=== PATIENT | female | born 1975 | race Hispanic/Latino ===

== ENCOUNTER 2018-01-29 08:23 | Observation (INO) | payer SELFPAY ==
[2018-01-29 09:07] LABS: #Basophils 0.1 thou/uL (0.0-0.2); #Eosinphils 0.1 thou/uL (0.0-0.7); #Lymphocytes 3.6 thou/uL (1.20-3.40); #Monocytes 0.4 thou/uL (0.11-0.59); #Neutrophils 8.4 thou/uL (1.40-6.50); %Basophils 0.5 % (0.0-1.0); %Eosinophils 1.1 % (0.0-10.0); %Lymphocytes 28.5 % (21.0-51.0); %Monocytes 3.5 % (0.0-10.0); %Neutrophils 66.5 % (42.0-75.0); Hemoglobin 15.7 g/dL (12.0-16.0); Mean Corpuscular HGB CONC 34.7 g/dL (32.0-36.0); Mean Corpuscular Hemoglobin 29.6 pg (27.0-31.0); Mean Corpuscular Volume 85.3 fl (81.0-99.0); Mean Platelet Volume 8.8 fL (7.4-10.4); Platelet Count 240 thou/uL (130-400); RBC Distribution Width 12.3 % (11.5-14.5); Red Blood Cell (RBC) Count 5.29 mill/uL (4.20-5.40); White Blood Cell (WBC) Count 12.6 thou/uL (4.8-10.8)
[2018-01-29 09:12] LABS: ALT (SGPT) 14 U/L (8-55); AST (SGOT) 15 U/L (5-34); Albumin 4.5 g/dL (3.5-5.0); Alkaline Phosphatase 119 U/L (40-150); Anion Gap 14 mmol/L (10-20); BUN (Urea Nitrogen) 17 mg/dL (7.0-18.7); Bilirubin, Total 0.6 mg/dL (0.2-1.2); CK (CPK) 37 U/L (29-168); Calc. Creatinine Clearance 0 mL/min (70-130); Calcium 9.8 mg/dL (7.8-10.44); Carbon Dioxide 28 mmol/L (22-29); Chloride 98 mmol/L (98-107); Estimated GFR-MDRD 72; Globulin 3.8 g/dL (2.4-3.5); Glucose 255 mg/dL (70-105); Potassium 3.1 mmol/L (3.5-5.1); Protein, Total 8.3 g/dL (6.0-8.3); Sodium 137 mmol/L (136-145)
[2018-01-29 09:16] LABS: CKMB 0.3 ng/mL (0-6.6); Troponin I Less than 0.010 ng/mL (< 0.028)
[2018-01-29 10:07] LABS: Bilirubin Negative (Negative); Blood, Urine Trace (Negative); Clarity TURBID (Clear); Glucose, Urine (Dipstick) 250 mg/dL (Negative); Leukocyte Moderate (Negative); Nitrite Negative (Negative); Protein, Urine (Dipstick) Negative (Neg-Trace); Urobilinogen 0.2 mg/dL (0.2-1.0); pH, Urine 5.5 (5.0-9.0)
--- NOTE | 2018-01-29 10:11 | CT ---
CT BRAIN NONCONTRAST: HISTORY: 42-year-old female with headache and hypertension. FINDINGS: The ventricles are normal in size and configuration. There is no midline shift or any other mass eff ect. There is no evidence of acute intracranial hemorrhage, large cortical infarct, or extraaxial fl uid collection. The sandra matter /white matter differentiation is maintained. The calvarium is intac t. The tympanomastoid cavities, and the upper portions of the paranasal sinuses included in these im ages, are grossly clear. IMPRESSION: Normal. jn [] POS: [facility]
[2018-01-29] MEDS ORDERED: Aspirin 325 MG TAB ONE (10:24)
[2018-01-29] MEDS ORDERED: Potassium Chloride 20 MEQ TAB ONE (10:24)
[2018-01-29] MEDS ORDERED: Insulin Regular 300 UNITS/3 ML VIAL ONE (10:25)
[2018-01-29 10:26] LABS: Bacteria/HPF None Seen HPF (None Seen); Hyaline Casts/LPF 0-3 HYALINE CAST LPF (0-3 Hyaline)
[2018-01-29] MEDS ORDERED: Ketorolac Tromethamine 30 MG/ML VIAL ONE (10:26)
--- NOTE | 2018-01-29 10:32 | RAD ---
PORTABLE CHEST: Date: 01/29/18 HISTORY: Chest pain. FINDINGS: Heart size is within normal limits for portable technique. No signs of failure or focal infiltrates. IMPRESSION: Borderline heart size. POS: [facility]
[2018-01-29] MEDS ORDERED: cefTRIAXone\\ROCEPHIN 1 GM VIAL ONE (12:12)
[2018-01-29 12:22] LABS: Troponin I 0.016 ng/mL (< 0.028)
[2018-01-29 12:47] VITALS: BMI 35.2
[2018-01-29] MEDS ORDERED: Ondansetron ODT 4 MG TAB SL PRN (13:00)
[2018-01-29] MEDS ORDERED: Ondansetron HCl/PF 4 MG/2 ML Vial IVP PRN (13:00)
[2018-01-29] MEDS ORDERED: Acetaminophen 325 MG TAB PO PRN (13:00)
[2018-01-29 14:20] LABS: Troponin I Less than 0.010 ng/mL (< 0.028)
[2018-01-29 14:21] LABS: Cardiac Risk 7.7 (Less than 4.5)
[2018-01-29] MEDS ORDERED: Dextrose 50% Abboject 50 ML SYRINGE SLOW IVP PRN (16:49)
[2018-01-29] MEDS ORDERED: Dextrose 5% in Water 1,000 ML IV PRN (16:49)
[2018-01-29] MEDS: HumaLOG 300 UNITS/3 ML VIAL SC PRN ×2 (18:28→20:12)
--- NOTE | 2018-01-29 19:52 | HP ---
CHIEF COMPLAINT: Chest pain. HISTORY OF PRESENT ILLNESS: Patient is a very pleasant 42-year-old female with a history of hyperten srini and diabetes and smoking who presents to the hospital with complaints of chest pain. Patient st ates that she woke up this morning at 5:00 a.m. and started having a headache and then started having sharp chest pain to her left substernal area around 7:00 a.m. Patient stated that she did have some nausea; however, no emesis and had some dizziness also. Patient states that she has been under a lo t of stress recently since she found out that her has been cheating on her. Patient states t hat she has not eaten anything for the past 2 days. Patient states that her chest pain is sharp in n ature. Denies any radiation, currently; however, states that she did have some radiation down her le ft arm earlier which has resolved. Denies any diaphoresis; however, did have some dizziness and no s hortness of breath was noted. Patient got concerned and came into the ER for further evaluations. PAST MEDICAL HISTORY: History of hypertension, diabetes, hypercholesterol. PAST SURGICAL HISTORY: Cholecystectomy, tonsillectomy, 3 C-sections. SOCIAL HISTORY: She smokes 3 packs a week for the past couple of weeks given her stress level; [facility], normally she smokes a pack a week. Denies any alcohol or drug use. FAMILY HISTORY: Mother has a history of breast cancer, hypertension. Father's history she does not know. MEDICATIONS: She takes metformin, aspirin, amlodipine and atorvastatin daily. ALLERGIES: She has got no known drug allergies. REVIEW OF SYSTEMS: The following complete review of systems was negative, unless otherwise mentioned in the HPI or below: Constitutional: Weight loss or gain, ability to conduct usual activities. Sk in: Rash, itching. Eyes: Double vision, pain. ENT/Mouth: Nose bleeding, neck stiffness, pain, te nderness. Cardiovascular: Palpitations, dyspnea on exertion, orthopnea. Respiratory: Shortness of breath, wheezing, cough, hemoptysis, fever or night sweats. Gastrointestinal: Poor appetite, abdom inal pain, heartburn, nausea, vomiting, constipation, or diarrhea. Genitourinary: Urgency, frequenc y, dysuria, nocturia. Musculoskeletal: Pain, swelling. Neurologic/Psychiatric: Anxiety, depressio n. Allergy/Immunologic: Skin rash, bleeding tendency. PHYSICAL EXAMINATION. VITAL SIGNS: Temperature of 98.0, pulse 62, respiratory rate 20, O2 sat 97% room air, blood pressure 152/73. GENERAL: She is awake, alert, oriented x3, does not appear in any distress. HEENT: Normocephalic, atraumatic. No lymphadenopathy noted. CARDIOVASCULAR: S1, S2 present. No murmurs, rubs or gallops. ABDOMEN: Soft, nontender. Bowel sounds are present x2. No hepatomegaly, splenomegaly noted. LUNGS: Clear to auscultation. No rhonchi, wheezes noted. EXTREMITIES: Lower extremity, no edema noted. Pedal pulses present x2. SKIN: No bruises or lesions noted. NEUROLOGIC: She is awake, alert, and oriented x3. No focal abnormalities noted. LABORATORY DATA: As following: Sodium of 137, potassium of 3.1, BUN of 17, creatinine 0.86. Sugar of 255. Troponins x3 were negative. WBC of 12.6, hemoglobin of 14.7, hematocrit 45.1. EKG upon my review appeared to be normal. CT brain, no acute abnormalities noted and chest x-ray again no abnorm alities noted. ASSESSMENT AND PLAN: Patient is a very pleasant 42-year-old female who presents to the hospital with complaints of chest pain. 1. Atypical chest pain. Troponins x3 are negative. EKG is negative; however, patient does have ris k factors which includes hypertension, diabetes, smoking, and obesity. We will order a stress test w ith patient. We will check a lipid level. D-dimer was negative. Patient encouraged about smoking c essation and also diet, exercise and weight loss. 2. Diabetes. We will hold the metformin. We will start the patient on sliding scale insulin and al so Accu-Cheks a.c. and at bedtime. 3. Hypertension. We will continue the patient's home medications. Patient may require adjustment o f her blood pressure medications. 4. Hyperlipidemia. Patient currently is on 10 mg of atorvastatin. Her fasting lipid panel indicate s uncontrolled cholesterol and triglycerides. We will increase her atorvastatin to 40 mg. 5. Deep venous thrombosis prophylaxis. We will put patient on subQ heparin.
[2018-01-29] MEDS: Atorvastatin Calcium 40 MG TAB PO SCH (20:11)
[2018-01-29] MEDS ORDERED: Enoxaparin Sodium 40 MG/0.4 ML SYRINGE SC SCH (21:00)
[2018-01-30] MEDS: HumaLOG 300 UNITS/3 ML VIAL SC PRN ×4 (06:41→20:39)
[2018-01-30] MEDS ORDERED: Atorvastatin Calcium 10 MG TAB PO SCH (09:00)
[2018-01-30] MEDS: Aspirin 325 MG TAB PO SCH (09:31)
[2018-01-30] MEDS: Amlodipine 5 MG TAB PO SCH (09:31)
--- NOTE | 2018-01-30 12:12 | NM ---
MYOCARDIAL PERFUSION SCAN WITH SPECT IMAGING: HISTORY: Chest pain. TECHNIQUE/FINDINGS: Examination is performed using 30 mCi 99m-technetium sestamibi on the stress and 32 on the resting im ages. This shows An area of thinning of the anterolateral wall of the left ventricle which does appea r to improve slightly on resting images. WALL MOTION: There is symmetric contractility to the ventricle. LEFT VENTRICULAR EJECTION FRACTION: The calculated left ventricular ejection fraction is 61%. IMPRESSION: Anterolateral wall thinning of the left ventricle which does improve on the resting images suggesting some ischemic change. POS: [facility]
[2018-01-30] MEDS ORDERED: Enoxaparin Sodium 80 MG/0.8 ML SYRINGE SC SCH (14:30)
--- NOTE | 2018-01-30 14:41 | PDOC.PN ---
- Subjective Encounter Start Date: 01/30/18 Encounter Start Time: 14:39 Pt seen for followup re: chest pain. Reports on and off L sided chest pain. Denies fevers or chills. No nausea or vomiting. - Objective MAR Reviewed: Yes Vital Signs & Weight: Vital Signs (12 hours) Temp Pulse Resp BP Pulse Ox 01/30/18 11:20 98.8 F 56 L 16 167/80 H 97 01/30/18 07:18 98.4 F 60 16 144/71 H 94 L 01/30/18 04:00 98.2 F 78 16 144/87 H 95 Weight Weight 192 lb 3.2 oz I&O: 01/29/18 01/30/18 01/31/18 06:59 06:59 06:59 Intake Total 650 Balance 650 Result Diagrams: 01/29/18 08:46 01/29/18 08:46 Additional Labs: Accuchecks 01/30/18 01/30/18 01/29/18 11:25 06:05 20:07 POC Glucose 317 H 252 H 289 H 01/29/18 16:33 POC Glucose 299 H EKG Reviewed by me: Yes (Tele: NSR) Phys Exam - Physical Examination Constitutional: NAD HEENT: moist MMs, sclera anicteric, oral pharynx no lesions, 2+ tonsils Neck: no nodes, no JVD, supple, full ROM Respiratory: no wheezing, no rales, no rhonchi, clear to auscultation bilateral Cardiovascular: RRR, no rub S1, S2 Gastrointestinal: soft, non-tender, no distention, positive bowel sounds Neurological: moves all 4 limbs Psychiatric: normal affect, A&O x 3 Dx/Plan (1) Chest pain Code(s): R07.9 - CHEST PAIN, UNSPECIFIED Status: Acute Comment: Continues to have on and off chest pain, continue aspirin and nitro PRN, start Lovenox for probable unstable angina. (2) Abnormal stress test Status: Acute Comment: consult cardiology. (3) Tobacco abuse Code(s): Z72.0 - TOBACCO USE Status: Chronic Comment: Counseled re: tobacco cessation, start nicotine replacement therapy. (4) HTN (hypertension) Code(s): I10 - ESSENTIAL (PRIMARY) HYPERTENSION Status: Chronic Comment: Monitor vital signs, titrate antihypertensives as needed. - Plan * . Review of Systems - Review of Systems Constitutional: negative: fever, chills, sweats, weakness, malaise Respiratory: negative: Cough, Shortness of Breath, SOB with Excertion, Pleuritic Pain, Wheezing Cardiovascular: chest pain. negative: palpitations, orthopnea, paroxysmal nocturnal dyspnea, edema, light headedness Gastrointestinal: negative: Nausea, Vomiting, Abdominal Pain, Diarrhea, Constipation, Melena, Hematochezia Genitourinary: negative: Dysuria, Frequency, Incontinence, Hematuria, Retention Skin: negative: Rash, Lesions, Esequiel, Bruising - Medications/Allergies Allergies/Adverse Reactions: Allergies Allergy/AdvReac Type Severity Reaction Status Date / Time No Known Allergies Allergy Verified 11/13/14 23:05 Medications: Current Medications Amlodipine Besylate (Norvasc) 5 mg PO DAILY [facility] Last Admin: 01/30/18 09:31 Dose: 5 mg Aspirin (Aspirin) 325 mg PO DAILY [facility] Last Admin: 01/30/18 09:31 Dose: 325 mg Atorvastatin Calcium (Lipitor) 40 mg PO HS [facility] Last Admin: 01/29/18 20:11 Dose: 40 mg Dextrose/Water (Dextrose 50%) 25 gm SLOW IVP PRN PRN PRN Reason: Hypoglycemia Enoxaparin Sodium (Lovenox) 90 mg SC Q12H JAIR Glucagon (Glucagon) 1 mg IM PRN PRN PRN Reason: Hypoglycemia Dextrose/Water (D5w) 1,000 mls @ 0 mls/hr IV .Q0M PRN; As Directed PRN Reason: Hypoglycemia Insulin Human Lispro (Humalog) 0 units SC .MILD SLIDING SCALE PRN PRN Reason: Mild Correctional Scale Last Admin: 01/30/18 12:17 Dose: 5 unit Nicotine (Nicoderm Patch) 14 mg TD Q24HR JAIR Nitroglycerin (Nitrostat) 0.4 mg PO Q5MIN PRN PRN Reason: Chest Pain
[2018-01-30] MEDS ORDERED: Nicotine 14 MG PATCH TD SCH (15:00)
[2018-01-30] MEDS: Nitroglycerin 0.4 MG TAB (25 Tab Bottle) PO PRN ×2 (15:15→16:26)
[2018-01-30 15:23] LABS: BHCG - Serum Negative (NEGATIVE); Pregs Control Background? CLEAR/WHITE (CLR/WHITE); Pregs Control Bar Appear? YES (CONTROL BAR)
[2018-01-30] MEDS ORDERED: Morphine 4 MG/ML VIAL IV PRN (15:25)
[2018-01-30 18:56] LABS: Hemoglobin 12.9 g/dL (12.0-16.0); Platelet Count 205 thou/uL (130-400)
[2018-01-30] MEDS: Atorvastatin Calcium 40 MG TAB PO SCH (20:31)
[2018-01-30] MEDS ORDERED: Enoxaparin Sodium 100 MG/ML SYRINGE SC SCH (21:00)
[2018-01-31] MEDS ORDERED: Communication Order-Pharmacy FS SCH (06:45)
[2018-01-31] MEDS ORDERED: Iopamidol 370 76% 100 ML VIAL ONE (06:50)
[2018-01-31] MEDS ORDERED: Fentanyl 100 MCG/2 ML VIAL ONE (07:12)
[2018-01-31] MEDS ORDERED: Lidocaine 1% (PF) 30 ML VIAL ONE (07:12)
[2018-01-31] MEDS ORDERED: Midazolam HCl 2 mg/2 ml Vial ONE (07:13)
[2018-01-31] MEDS ORDERED: Acetaminophen/Codeine 30-300mg Tablet PO PRN ×2 (07:33)
[2018-01-31] MEDS ORDERED: traMADol HCl 50 MG TAB PO PRN (07:33)
[2018-01-31] MEDS ORDERED: Nitroglycerin 0.4 MG TAB (25 Tab Bottle) SL PRN (07:33)
[2018-01-31] MEDS ORDERED: Sodium Chloride 0.9% 200 ML IV SCH (07:45)
[2018-01-31] MEDS: Amlodipine 5 MG TAB PO SCH (08:29)
[2018-01-31] MEDS: Aspirin 325 MG TAB PO SCH (08:29)
[2018-01-31] MEDS: HumaLOG 300 UNITS/3 ML VIAL SC PRN (11:26)
--- NOTE | 2018-01-31 11:40 | CON ---
DATE OF CONSULTATION: 01/31/2018 HISTORY OF PRESENT ILLNESS: The patient is a 42-year-old woman, who presents with left-sided discomf ort. The patient has a previous history of cerebrovascular accident. She states that for the past m onth she would have left-sided chest pain, lasting approximately 5 minutes. She presented to the [facility] with chest pain that radiated down her left arm, this lasted for approximately one hour. The patient denies having any present chest discomfort. The patient has multiple cardiac risk facto rs including diabetes mellitus, hypertension, strong family history of heart disease. PAST MEDICAL HISTORY: 1. Hypertension. 2. Diabetes mellitus. 3. Hypercholesterolemia. PAST SURGICAL HISTORY: Cholecystectomy, tonsillectomy, . SOCIAL HISTORY: She has a long history of continued tobacco abuse. FAMILY HISTORY: There is a positive family history of heart disease. MEDICATIONS ON ADMISSION: Included she takes metformin 500 b.i.d., Lipitor 10 daily, aspirin 81 noe y, and amlodipine 5 daily. REVIEW OF SYSTEMS: Ten-point system otherwise unremarkable. No history of easy bruising or bleeding , bright red blood per rectum. PHYSICAL EXAMINATION: GENERAL: Obese woman in no acute distress. VITAL SIGNS: Blood pressure 138/91. NECK: No jugular distention, no carotid bruits. LUNGS: Clear to auscultation. HEART: Regular rate and rhythm, normal S1, S2. ABDOMEN: Soft, nondistended. EXTREMITIES: No edema. SKIN: Warm and dry. NEUROLOGIC: Nonfocal. VASCULAR: Radial pulses are 2+. LABORATORY DATA: Sodium was 137, potassium 3.1, chloride 98, bicarbonate 28, BUN 17, creatinine is 0 .86, glucose 255. Troponin less than 0.01. Her white blood cell count was 12.6, hemoglobin 15.7, he matocrit 45.1, platelets are 240. Her EKG revealed normal sinus rhythm, normal ECG. Her stress test revealed her to have a normal left ventricular ejection fraction 61% with a possible anterolateral i schemia. IMPRESSION: 1. Chest pain suggestive of angina. 2. Abnormal stress test. 3. Diabetes mellitus. 4. Hypertension. 5. Obesity. This patient presents with chest pain suggestive of angina. She has multiple risk factors for figueroa ry artery disease and slightly abnormal stress test. I discussed the option of medical therapy versu s an invasive evaluation. The patient strongly prefers to have a definitive diagnosis. I explained the risks involving cardiac catheterization, TN, bleeding, stroke, cardiac arrhythmia, cardiac . Patient understands these and wished to proceed. PLAN: Proceed with cardiac catheterization.
[2018-01-31 11:50] VITALS: BP 138/74; TEMP 98.3
--- NOTE | 2018-01-31 20:13 | DIS ---
DATE OF ADMISSION: 01/29/2018 DATE OF DISCHARGE: 01/31/2018 PRIMARY CARE PROVIDER: [facility]. DISCHARGE DIAGNOSIS: Chest pain. CONDITION OF PATIENT ON THE DAY OF DISCHARGE: Stable. I assessed Ms. Marie on the day of discha rge. She denies any chest pain or or shortness of breath. Vital signs are stable. S1 and S2 are he eben, regular. Lungs are clear to auscultation bilaterally. DISCHARGE MEDICATIONS: Amlodipine 5 mg daily, aspirin 81 mg daily, Lipitor 10 mg daily. HOSPITAL COURSE: Mr. Marie is a pleasant 42-year-old lady who was admitted to [facility] on 01/31/2018 for chest pain. She underwent nuclear stress test on 01/29/2018, which showed anterolateral wall thinning of the left ventricle which improved on the resting images sugges ting some ischemic change. She was seen by Cardiology service and underwent cardiac catheterization on 01/29/[address] Baptiste. She had normal LMCA, 20% stenosis, 12 mm long in mid LAD and a 20% st enosis, 10 mm long in midsection on first obtuse marginal. She had normal RCA. She has been advised to stop smoking. She also had dyslipidemia during this hospitalization, with triglycerides 174, cholesterol 200, LDL c holesterol 139, and HDL cholesterol 26. She is advised to follow up with her primary care provider f or dyslipidemia management. Many thanks for allowing me to participate in your patient's care. Please feel free to contact me wi th any questions or concerns. DISCHARGE DESTINATION: Home.
== END 2018-01-31 12:24 | disposition home or self-care (01) ==
LOC: ERS 08:23 → 2SW 12:28
PROVIDERS: ADMIT Internal Medicine; ATTEND Internal Medicine
PROC: 4A023N7 Measurement of Cardiac Sampling and Pressure, Left Heart, Percutaneous Approach (ICD-10-PCS; principal; 2018-01-31)
PROC: B211YZZ Fluoroscopy of Multiple Coronary Arteries using Other Contrast (ICD-10-PCS; 2018-01-31)
DX: I25.10 Atherosclerotic heart disease of native coronary artery without angina pectoris (principal); R07.89 Other chest pain; I10 Essential (primary) hypertension; E11.9 Type 2 diabetes mellitus without complications; E78.00 Pure hypercholesterolemia, unspecified; F17.210 Nicotine dependence, cigarettes, uncomplicated; Z79.82 Long term (current) use of aspirin; Z79.84 Long term (current) use of oral hypoglycemic drugs; Z79.899 Other long term (current) drug therapy; E78.5 Hyperlipidemia, unspecified; Z86.73 Personal history of transient ischemic attack (TIA), and cerebral infarction without residual deficits
CPT/HCPCS: 36415; 36416; 70450; 71045; 78452; 80053; 80061; 81003; 81015; 82553; 83605; 83880; 84443; 84484; 84703; 85014; 85018; 85025; 85049; 85379; 90471; 90732; 93005; 93017; 93458; 93798; 94760; 96361; 96372; 96374; 96375; A4216; A9500; C1769; G0009; G0378; J0696; J1644; J1650; J1815; J1885; J2001; J2250; J3010

== ENCOUNTER 2020-03-22 15:09 | Emergency (ER) | payer OTHER, SELFPAY | END 2020-03-22 15:22 | disposition home or self-care (01) | LOC: ERS 15:09 | DX: R50.9 Fever, unspecified (principal); R05 Cough; R52 Pain, unspecified; Z20.828 Contact with and (suspected) exposure to other viral communicable diseases; E11.9 Type 2 diabetes mellitus without complications; I10 Essential (primary) hypertension; F17.210 Nicotine dependence, cigarettes, uncomplicated; Z86.73 Personal history of transient ischemic attack (TIA), and cerebral infarction without residual deficits; Z79.84 Long term (current) use of oral hypoglycemic drugs; Z79.899 Other long term (current) drug therapy | CPT/HCPCS: 87635; 99283; U0003 ==

== ENCOUNTER 2020-11-08 16:00 | Emergency (ER) | payer SELFPAY ==
[~2020-11-08 16:00] MED LIST: Iopamidol-370 76% 500 ML 1 ML ONE
[2020-11-08 16:26] LABS: #Basophils 0.1 thou/uL (0.0-0.2); #Eosinphils 0.2 thou/uL (0.0-0.7); #Lymphocytes 3.4 thou/uL (1.20-3.40); #Monocytes 0.5 thou/uL (0.11-0.59); #Neutrophils 6.4 thou/uL (1.40-6.50); %Basophils 1.2 % (0.0-1.0); %Eosinophils 1.8 % (0.0-10.0); %Lymphocytes 32.5 % (21.0-51.0); %Monocytes 4.4 % (0.0-10.0); %Neutrophils 60.2 % (42.0-75.0); Hemoglobin 16.5 g/dL (12.0-16.0); Mean Corpuscular HGB CONC 34.9 g/dL (32.0-36.0); Mean Corpuscular Hemoglobin 29.7 pg (27.0-31.0); Mean Corpuscular Volume 85.2 fL (78.0-98.0); Mean Platelet Volume 9.5 fL (7.4-10.4); Platelet Count 222 thou/uL (130-400); RBC Distribution Width 12.1 % (11.5-14.5); Red Blood Cell (RBC) Count 5.55 mill/uL (4.20-5.40); White Blood Cell (WBC) Count 10.6 thou/uL (4.8-10.8)
[2020-11-08 16:32] LABS: Bacteria/HPF 1+ HPF (None Seen); Bilirubin Negative (Negative); Blood, Urine Negative (Negative); Clarity Turbid (Clear); Glucose, Urine (Dipstick) Greater than 1000 mg/dL (Negative); Ketone, Urine 10 mg/dL (Negative); Leukocyte Negative Leu/uL (Negative); Nitrite Negative (Negative); Protein, Urine (Dipstick) 100 mg/dL (Neg-Trace); RBC/HPF 0-3 HPF (0-3); pH, Urine 5.5 (5.0-9.0)
[2020-11-08 16:48] LABS: ALT (SGPT) 14 U/L (8-55); AST (SGOT) 14 U/L (5-34); Alkaline Phosphatase 111 U/L (40-110); Anion Gap 16 mmol/L (10-20); BUN (Urea Nitrogen) 18 mg/dL (7.0-18.7); Bilirubin, Total 0.4 mg/dL (0.2-1.2); Calc. Creatinine Clearance 0 mL/min (70-130); Calcium 9.1 mg/dL (7.8-10.44); Carbon Dioxide 22 mmol/L (22-29); Chloride 102 mmol/L (98-107); Globulin 3.3 g/dL (2.4-3.5); Glucose 335 mg/dL (70-105); Lipase 10 U/L (8-78); Potassium 3.3 mmol/L (3.5-5.1); Protein, Total 7.3 g/dL (6.0-8.3); Sodium 137 mmol/L (136-145)
[2020-11-08] MEDS ORDERED: Mag-Al 1200 mg/1200 mg/30 ML UDCUP ONE (16:53)
[2020-11-08] MEDS ORDERED: Lidocaine Viscous Sol 2% 15 ml UD Cup ONE (16:53)
--- NOTE | 2020-11-08 17:12 | RAD ---
Exam: Chest one view HISTORY:Previous mastectomy Comparison: 01/30/2028 FINDINGS: Cardiac silhouette: Normal Aorta: Unremarkable Pulmonary vessels: Normal Costophrenic angles: Clear LUNGS: No masses or consolidation. Pneumothorax: None Osseous abnormalities: None IMPRESSION: No acute cardiopulmonary process.
[2020-11-08] MEDS ORDERED: Morphine 4 MG/ML VIAL ONE (17:24)
[2020-11-08] MEDS ORDERED: Ondansetron PF 4 MG/2 ML Vial ONE (17:24)
--- NOTE | 2020-11-08 18:26 | CT ---
EXAM: CT ABDOMEN AND PELVIS HISTORY: Abdominal pain intermittent, x3 weeks COMPARISON: None. Procedure: Multiple contiguous axial images were obtained and a CT of the abdomen and pelvis with IV contrast. C oronal reformats were performed. FINDINGS: Lower Chest: Scarring and atelectasis in the right lower lobe Vessels: Scattered atherosclerosis without aneurysm, dissection or periaortic fat stranding Heart: Normal heart size. No significant pericardial fluid Abdomen: Portal vein:Patent Gallbladder: Surgically absent Liver: within normal limits. Pancreas: within normal limits. Spleen: within normal limits. Adrenals: within normal limits. Kidneys: Symmetric enhancement. No obstructive uropathy. Peritoneum: No ascites or free air, no fluid collection. Bowel: Limited evaluation due to the lack of oral contrast administration. No evidence of bowel obstr uction. Ileocecal junction is unremarkable. Normal caliber appendix. Scattered fecal material in a nondistended, nondilated colon. Diverticulosis, without evidence of diverticulitis. Mesentery and Retroperitoneum: No enlarged mesenteric or retroperitoneal lymph nodes. Abdominal Wall: within normal limits. Pelvis: Reproductive Organs: Reproductive organs are unremarkable. Pelvis: No mass, lymphadenopathy, free air or free fluid. Bladder: within normal limits. Bones: within normal limits. IMPRESSION: No evidence of acute intraabdominal\pelvic abnormality.
== END 2020-11-08 18:59 | disposition home or self-care (01) ==
LOC: ERS 16:00
DX: K29.70 Gastritis, unspecified, without bleeding (principal); E86.0 Dehydration; E11.65 Type 2 diabetes mellitus with hyperglycemia; R11.2 Nausea with vomiting, unspecified; I10 Essential (primary) hypertension; Z86.73 Personal history of transient ischemic attack (TIA), and cerebral infarction without residual deficits; F17.210 Nicotine dependence, cigarettes, uncomplicated
CPT/HCPCS: 36415; 36416; 71045; 74177; 80053; 81003; 81015; 82010; 83690; 85025; 87086; 96374; 96375; J2270; J2405; Q9967